=== PATIENT | female | born 1995 | race Hispanic/Latino ===

== ENCOUNTER 2021-10-13 09:50 | Emergency (ER) | payer MEDICAID ==
--- NOTE | 2021-10-13 11:15 | XRay Report ---
LEFT FOOT 3 VIEW(S) INDICATION / CLINICAL INFORMATION: PAIN /SWELLING COMPARISON: None available. FINDINGS: BONES / JOINT(S): No acute fracture or subluxation. No significant arthritis. SOFT TISSUES: Soft tissue swelling of the dorsum of the foot. ADDITIONAL FINDINGS: None. IMPRESSION: 1. Soft tissue swelling at the dorsum of the foot without acute osseous abnormality. Signer Name: Nishant Buchanan MD Signed: 10/13/2021 11:11 AM Workstation Name: [id number]
[2021-10-13] MEDS ORDERED: traMADol 50 MG TAB PO ONE (11:41)
--- NOTE | 2021-10-13 12:47 | Emergency Department Report ---
ED Lower Extremity HPI - General Chief Complaint: Extremity Injury, Lower Stated Complaint: ANKLE/FOOT INJURY Time Seen by Provider: 10/13/21 11:39 Source: patient Mode of arrival: Wheelchair Limitations: No Limitations - History of Present Illness Initial Comments: 26-year-old female who presents for left dorsal foot pain. States she was walking and twisted her foot and felt a pop. Now pain with attempted ambulation. There is no obvious deformity. Pain is described at 5/10. Pain is exacerbated by weightbearing. Pain is relieved by nothing tried. MD Complaint: foot injury - Related Data Previous Rx's Medication Instructions Recorded Last Taken Type Naproxen 500 mg PO BID PRN #30 tab 10/13/21 Unknown Rx Allergies Allergy/AdvReac Type Severity Reaction Status Date / Time No Known Allergies Allergy Unverified 10/13/21 09:52 ED Review of Systems ROS: Stated complaint: ANKLE/FOOT INJURY Other details as noted in HPI Constitutional: denies: chills, fever Eyes: denies: eye pain, eye discharge, vision change ENT: denies: ear pain, throat pain Respiratory: denies: cough, shortness of breath, wheezing Cardiovascular: denies: chest pain, palpitations Endocrine: no symptoms reported Gastrointestinal: denies: abdominal pain, nausea, diarrhea Genitourinary: denies: urgency, dysuria, discharge Musculoskeletal: other (Foot pain). denies: back pain, joint swelling, arthralgia Skin: denies: rash, lesions Neurological: denies: headache, weakness, paresthesias Psychiatric: denies: anxiety, depression Hematological/Lymphatic: denies: easy bleeding, easy bruising ED Past Medical Hx - Past Medical History Previous Medical History?: No - Surgical History Additional Surgical History: WISDOM TOOTH - Medications Home Medications: Home Medications Medication Instructions Recorded Confirmed Last Taken Type Naproxen 500 mg PO BID PRN #30 tab 10/13/21 Unknown Rx ED Physical Exam - General Limitations: No Limitations General appearance: alert, in no apparent distress - Head Head exam: Present: atraumatic, normocephalic - Eye Eye exam: Present: normal appearance, EOMI Pupils: Present: normal accommodation - ENT ENT exam: Present: mucous membranes moist - Neck Neck exam: Present: normal inspection, full ROM. Absent: tenderness - Respiratory Respiratory exam: Present: normal lung sounds bilaterally. Absent: respiratory distress - Cardiovascular Cardiovascular Exam: Present: regular rate, normal rhythm, normal heart sounds. Absent: systolic murmur, diastolic murmur, rubs, gallop - GI/Abdominal GI/Abdominal exam: Present: soft, normal bowel sounds. Absent: distended - Rectal Rectal exam: Present: deferred - Extremities Exam Extremities exam: Present: full ROM - Expanded Lower Extremity Exam Left Foot/Toe exam: Present: full ROM, tenderness (Left lateral dorsal foot ec chymosis no swelling no deformity no crepitus distal pulses +2 [employer] less than 3 seconds), swelling (Mild). Absent: abrasion, laceration, ecchymosis, deformity, dislocation, erythema, amputation, puncture wound, calcaneal tenderness, tenderness at base of 5th metatarsal, nail avulsion, subungual hematoma Neuro vascular tendon exam: Absent: pulse deficit, motor deficit, sensory deficit, tendon deficit, foot drop Gait: Positive: observed and limited by pain - Back Exam Back exam: Present: normal inspection, full ROM. Absent: paraspinal tenderness, vertebral tenderness - Neurological Exam Neurological exam: Present: alert, oriented X3, CN II-XII intact, reflexes norm al. Absent: motor sensory deficit - Expanded Neurological Exam Expanded Patient oriented to: Present: person, place, time Speech: Present: fluid speech Motor strength exam: RUE: 5, LUE: 5, RLE: 5, LLE: 5 DTR: ankle (R): 1+, ankle (L): 1+ Best Eye Response (Alejandra): (4) open spontaneously Best Motor Response (Alejandra): (6) obeys commands Best Verbal Response (Alejandra): (5) oriented [place] Total: 15 - Psychiatric Psychiatric exam: Present: normal affect, normal mood - Skin Skin exam: Present: warm, dry, intact, normal color. Absent: rash ED Course Vital Signs 10/13/21 09:55 Temperature 98.4 F Pulse Rate 98 H Respiratory 18 Rate Blood Pressure 91/51 [Right] O2 Sat by Pulse 98 Oximetry ED Lower Extremity MDM - Radiology Data Radiology results: report reviewed, image reviewed LEFT FOOT 3 VIEW(S) INDICATION / CLINICAL INFORMATION: PAIN /SWELLING COMPARISON: None available. FINDINGS: BONES / JOINT(S): No acute fracture or subluxation. No significant arthritis. SOFT TISSUES: Soft tissue swelling of the dorsum of the foot. ADDITIONAL FINDINGS: None. IMPRESSION: 1. Soft tissue swelling at the dorsum of the foot without acute osseous abnormality. Signer Name: Akiko Odonnell MD Signed: 10/13/2021 11:11 AM Workstation Name: [id number] Transcribed By: KRISH Dictated By: AKIKO ODONNELL MD Electronically Authenticated By: AKIKO ODONNELL MD Signed Date/Time: 10/13/21 1111 DD/ 1110 TD/TT: - Medical Decision Making Foot x-ray toe fracture dorsal swelling there is no crepitus no step-off no deformity distal pulses +2 to less than 3 seconds bilateral plan Fernando wrap, crutches, RICE therapy, follow-up with your doctor in 2 to 3 days. Patient verbalized agreement and understanding with discharge plan. Pain is controlled with NSAIDs given in ED. Will DC with same. Patient demonstrated safe use of crutches DC'd in stable condition at this time. Critical care attestation.: If time is entered above; I have spent that time in minutes in the direct care of this critically ill patient, excluding procedure time. ED Disposition Clinical Impression: Sprain of foot, left Qualifiers: Encounter type: initial encounter Qualified Code(s): S93.602A - Unspecified sprain of left foot, initial encounter Disposition: HOME / SELF CARE / HOMELESS Is pt being admited?: No Does the pt Need Aspirin: No Condition: Stable Instructions: Foot Sprain Additional Instructions: Take medications as prescribed, RICE therapy as directed. Use crutches as directed. Follow-up with your doctor in 2 to 3 days. Return to emergency department if symptoms worsen. Prescriptions: Naproxen 500 mg PO BID PRN #30 tab PRN Reason: Pain Referrals: PRIMARY CARE, [Primary Care Provider] - 3-5 Days Forms: Work/School Release Form(ED) Time of Disposition: 12:52
[2021-10-13 13:15] VITALS: BP 109/74
== END 2021-10-13 13:59 | disposition home or self-care (01) ==
LOC: ED 09:50
DX: S93.692A Other sprain of left foot, initial encounter (principal); Z79.899 Other long term (current) drug therapy; X50.1XXA Overexertion from prolonged static or awkward postures, initial encounter; Y93.89 Activity, other specified; Y92.89 Other specified places as the place of occurrence of the external cause; Y99.8 Other external cause status
CPT/HCPCS: 99283